=== PATIENT | female | born 1970 | race Caucasian/White ===

== ENCOUNTER 2020-09-23 11:14 | Emergency (ER) | payer SELFPAY ==
[2020-09-23 11:16] VITALS: BP 147/97; PULSE 113; RESP 16; TEMP 36.4; O2SAT 100; BMI 25.0
--- NOTE | 2020-09-23 11:35 | RAD_ITS ---
STUDY: X-RAY - LEFT ANKLE REASON FOR EXAM: Female, 50 years old. Left ankle pain, no injury TECHNIQUE: 3 view(s) of the ankle. COMPARISON: None. FINDINGS: Normal visualized distal tibia and fibula. Normal medial and lateral malleoli. Normal tibiotalar articulation and ankle mortise. Plantar spur. The visualized subtalar, talonavicular, calcaneocuboid and tarsal articulations are normal. Mild degree of lateral soft tissue swelling. RAD/Ankle min 3 Views IMPRESSION: Mild degree of lateral soft tissue swelling. Plantar spur. Electronically Signed: Del Willingham MD at 12:20 EST , Service support ,
--- NOTE | 2020-09-23 11:41 | ED.VIS.GEN ---
History of Present Illness Chief Complaint: Lower Extremity Injury Informant: Patient Narrative: 50-year-old female presenting with left foot and ankle pain. The symptoms have been present for 6 days. She notes no trauma. No history of the same. Denies any history of inflammatory arthropathies. She denies any swelling or redness. She has not seen them before this. Today she tried to work and was unsuccessful in doing so. Past Medical History - Allergies and Home Meds Allergies/Adverse Reactions: Allergies Penicillins [PCN] Allergy (Verified 09/23/20 11:16) Rash Primary Care Physician: Abraham Odell DPM [STAFF PHYSICIAN] - (call to arrange follow up with Podiatry) Past Medical History: None Surgical History: noncontributory Alcohol: Rare Drugs: None Review of Systems General: Denies: Chills, Fever, Sweats Eyes: Denies: Visual changes - bilaterally, Diplopia ENT: Denies: Rhinorrhea, Sore throat Cardiovascular: Denies: Chest pain, Palpitations Respiratory: Denies: Dyspnea, Cough, Dyspnea on exertion Gastrointestinal: Denies: Abdominal pain, Nausea, Vomiting, Diarrhea, Melena, Hematochezia Genitourinary: Denies: Dysuria, Hematuria, Frequency Musculoskeletal: Reports: Extremity Pain. Denies: Back pain Skin: Denies: Rash, Wounds Neurological: Denies: Headache, Weakness, Numbness Physical Exam Vital Signs/Narrative: Vital Signs Temp Pulse Resp BP Pulse Ox 09/23/20 11:16 97.5 F L 113 H 16 147/97 H 100 Inital Vital Signs reviewed: Yes General: Well nourished, Well developed, No Acute Distress Head: Normocephalic, Atraumatic Eyes: Perrl, EOMI ENT: Moist mucous membranes, No rhinorrhea Neck: Supple, Nontender Cardiovascular: Regular rate, Regular rhythm, No murmurs Respiratory: No distress, CTA bilaterally, Chest nontender Abdomen: Soft, Nontender, Nondistended, Normal bowel sounds Back: Nontender, Normal Inspection Extremities: Tenderness - The patient reports tenderness along the Achilles and tendons posterior to the lateral malleolus. There is no swelling or erythema. No deformities. Skin: Normal color, No rash Neurological: Alert, Oriented x3, Cranial nerves II-XII grossly intact, Normal Strength, Normal Sensation Psychological: Normal affect, Normal Mood Diagnostic/Tx/Re-eval Clinical Impression(s) from Imaging Studies Ankle X-Ray 09/23/20 11:35 IMPRESSION: Mild degree of lateral soft tissue swelling. Plantar spur. Electronically Signed: Del Willingham MD at 12:20 EST , Service support , - Medical Decision Making My impression interpretation of the 3 plain films of the ankle are plantar spur no fracture. As the patient is tender along her Achilles and associated tendons this most likely tendinitis. I recommend Wayne wrap anti-inflammatories and/or steroids. Follow-up with podiatry if not improved ED Disposition - Plan for ED Patient: Disposition: Home or Assisted Living Diagnosis: Tendonitis of ankle Instructions: ED Tendonitis Prescriptions: Prednisone [Deltasone] 40 mg PO DAILY #10 tab Prescription Printed Referrals: Abraham Odell DPM [STAFF PHYSICIAN] - (call to arrange follow up with Podiatry)
== END 2020-09-23 12:52 | disposition home or self-care (01) ==
LOC: ED 12:11
PROVIDERS: Emergency Provider Emergency Medicine
DX: M77.9 Enthesopathy, unspecified (principal)
CPT/HCPCS: 73610; 99282